=== PATIENT | female | born 2000 | race Caucasian/White ===

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

== ENCOUNTER 2020-10-15 21:25 | Emergency (ER) | payer OTHER ==
[~2020-10-15] VITALS: Ht 160 cm; Wt 65.9 kg
[~2020-10-15 21:25] MED LIST changes: +CEPHALEXIN500 M1 PO; +MONODOX100 PO
[2020-10-15] MEDS ORDERED: CRUTCHES MC (22:06)
[2020-10-15 22:44] VITALS: BP 125/72; PULSE 81; TEMP 98.7
== END 2020-10-15 22:44 | disposition home or self-care (01) ==
LOC: COL.ER 21:25
DX: S86.091A Other specified injury of right Achilles tendon, initial encounter (principal); X50.9XXA Other and unspecified overexertion or strenuous movements or postures, initial encounter